=== PATIENT | female | born 1960 | race Asian ===

== ENCOUNTER 2023-05-18 17:53 | Emergency (ER) | payer OTHER, SELFPAY ==
[2023-05-18 18:07] VITALS: BP 131/76; PULSE 93; RESP 16; TEMP 36.2; O2SAT 99
--- NOTE | 2023-05-18 19:15 | ED.GENADULT ---
HPI - General Adult General Chief complaint: Wound/Laceration <CRISSY Torres Last Filed: 05/19/23 01:39> Stated complaint: thumb laceration <CRISSY Torres Last Filed: 05/19/23 01:39> Time Seen by Provider: 05/18/23 18:12 <CRISSY Torres Last Filed: 05/19/23 01:39> Source: patient <CRISSY Torres Last Filed: 05/19/23 01:39> Mode of arrival: ambulatory <CRISSY Torres Last Filed: 05/19/23 01:39> Limitations: no limitations <CRISSY Torres Last Filed: 05/19/23 01:39> History of Present Illness HPI narrative: This is a 63-year-old female who presents to the ED with chief complaint of right thumb injury occurring just prior to arrival. Patient was making kimchi and using a mandolin at the time. Reports she accidentally avulsed the end of the thumb with the mandolin. Reports bleeding has persisted. Denies any further sites of pain or injury. <CRISSY Torres Last Filed: 05/19/23 01:39> Related Data Home medications: Home Medications Medication Instructions Recorded Confirmed simvastatin 20 mg tablet mg 05/18/23 <CRISSY Torres Last Filed: 05/19/23 01:39> Allergies/adverse reactions: Allergies Allergy/AdvReac Type Severity Reaction Status Date / Time No Known Allergies Allergy Verified 05/18/23 18:16 <CRISSY Torres Last Filed: 05/19/23 01:39> Review of Systems Review of Systems: All systems as dictated in HPI <CRISSY Torres Last Filed: 05/19/23 01:39> Exam Narrative: GENERAL: Well-appearing, well-nourished, and in no acute distress. HEAD: Normocephalic, atraumatic. EYES: PERRLA and EOMI. ENT: Nares clear, no rhinorrhea or epistaxis. Mucous membranes moist. Oropharynx without tonsillar hypertrophy exudate or other lesions. NECK: Supple. No adenopathy or masses. CHEST: No respiratory distress. Clear to auscultation. No wheezes rales or rhonchi HEART: Regular rate and rhythm. No murmur heard. Normal peripheral pulses. ABDOMEN: Soft, nontender, nondistended, normal active bowel sounds. MSK: Normal range of motion. No edema. SKIN: 1.5 cm full skin avulsion to the distal right thumb. No nail involvement. Oozing dark blood. NEURO: Alert and oriented x3. No focal deficits. PSYCH: Normal mood and affect. <Yohannes Hopkins PA-C - Last Filed: 05/19/23 01:39> Course Vital Signs Vital signs: Vital Signs Temperature 97.2 F L 05/18/23 18:07 Pulse Rate 93 05/18/23 18:07 Respiratory Rate 16 05/18/23 18:07 Blood Pressure 131/76 05/18/23 18:07 Pulse Oximetry 99 05/18/23 18:07 Temperature 97.2 F L 05/18/23 18:07 Pulse Rate 93 05/18/23 18:07 Respiratory Rate 16 05/18/23 18:07 Blood Pressure 131/76 05/18/23 18:07 Pulse Oximetry 99 05/18/23 18:07 <Yohannes Hopkins PA-C - Last Filed: 05/19/23 01:39> Vital Signs Temperature 97.2 F L 05/18/23 18:07 Pulse Rate 93 05/18/23 18:07 Respiratory Rate 16 05/18/23 18:07 Blood Pressure 131/76 05/18/23 18:07 Pulse Oximetry 99 05/18/23 18:07 Temperature 97.2 F L 05/18/23 18:07 Pulse Rate 93 05/18/23 18:07 Respiratory Rate 16 05/18/23 18:07 Blood Pressure 131/76 05/18/23 18:07 Pulse Oximetry 99 05/18/23 18:07 <Dangelo Garcia MD - Last Filed: 05/19/23 12:58> Medical Decision Making MDM Narrative Medical decision making narrative: This is a 63-year-old female who presents to the ED with chief complaint of skin avulsion injury that occurred just prior to arrival. Vitals are normal. Exam shows full skin avulsion to the distal tip of the right thumb. It is oozing blood on initial exam. Able to get bleeding under control with Surgicel dressing. There is no skin to approximate. She was given Tdap update. Expectant management given for this avulsion injury. Pt will be discharged in stable condition. Return precautions given and supportive measur
[2023-05-18] MEDS: CELLULOSE OXIDIZED 2 x 14 INCH 1 PKT XX (19:16)
[2023-05-18] MEDS: TETANUS,DIPHTHERIA,AC PERTUSSIS ADULT (0.5 ML) BOOSTRIX IM (19:39)
== END 2023-05-18 19:43 | disposition home or self-care (01) ==
PROVIDERS: Emergency Provider Physician Assistant
DX: S61.001A Unspecified open wound of right thumb without damage to nail, initial encounter (principal); Z23 Encounter for immunization; W27.4XXA Contact with kitchen utensil, initial encounter; Y93.G1 Activity, food preparation and clean up
CPT/HCPCS: 90471; 90715; 99282